=== PATIENT | male | born 1945 | race Caucasian/White ===

== ENCOUNTER 2022-04-11 08:35 | Observation (INO) ==
--- NOTE | 2022-04-06 13:03 | Anesthesiology Consultation ---
Date of Service April 06, 2022 Assessment & Plan (1) Encounter for pre-operative examination: COVID screening: Per assessment on 04/06: No known COVID-19 positive contacts or current COVID-19 related symptoms. Travel screen negative. Patient vaccinated. At surgeon discretion if preop Covid testing being done. Chart Review Chart Review: Acceptable Risk for Surgery and Patient NOT seen in Pre Admission Testing History Surgery Operation Date: 04/11/22 12:05 Proposed Procedures p TURP (Transurethral Resection of the Prostate), Possible Dilation - Frederick Thompson DO Height/Weight Height: 6 ft 2.5 in Weight: 104.326 kg Allergies Allergy/AdvReac Type Severity Reaction Status Date / Time dissolvable stitches AdvReac skin Uncoded 04/06/22 12:35 rejection Medications Home Medications Medication Instructions Recorded Confirmed Last Taken losartan 100 mg tablet (Cozaar) 100 mg PO QAM 02/09/22 04/06/22 Unknown naproxen sodium 220 mg capsule 220 mg PO BID PRN Pain 02/09/22 04/06/22 Unknown (Aleve) allopurinol 100 mg tablet 100 mg PO QAM 04/06/22 04/06/22 Unknown rqorlifh-roq-tokuv acid 300 1 tab PO QAM 04/06/22 04/06/22 Unknown mcg-lycopene 600 mcg-lutein 300 mcg tablet (Centrum Silver Men) rosuvastatin 10 mg tablet 10 mg PO HS 04/06/22 04/06/22 Unknown tamsulosin 0.4 mg capsule (Flomax) 0.4 mg PO BID 04/06/22 04/06/22 Unknown Past Medical History Medical History BPH with obstruction/lower urinary tract symptoms Hyperlipidemia Hypertension Prostate cancer Past Family History Family History Grandfather (Maternal) Colon cancer, Onset Age: 77 Mother Myocardial infarction, Onset Age: 72 Father Congestive heart failure, Onset Age: 28 Asthma Grandfather (Paternal) Stroke Past Surgical History Surgical History H/O knee surgery left knee open surgery H/O: vasectomy History of colonoscopy History of cystoscopy in office History of knee replacement left Social History Smoking Status: Former smoker tobacco type: cigarettes Do You Dip or Chew Tobacco: No Smoking End Date: 2009 Hx Alcohol Use: Yes Alcohol type: hard liquor alcohol intake frequency: a few times a week Hx Substance Use: No substance use type: does not use Testing Laboratory Results 04/01/22 WBC 5.6 H/H 15.1/44.6 PLATELETS 178 SODIUM 139 POTASSIUM 4.3 CHLORIDE 105 CO2 28 BUN 24 CREATININE 1.2 GLUCOSE 96 03/30/22 UA negative (no growth on culture) Electrocardiogram Date: 04/01/22 NSR at 60bpm. LAD. Chest X-Ray Date: 04/01/22 Minimal linear scarring at the lung bases. Mild aortic uncoiling. Moderate thoracic spine degenerative changes. No acute chest abnormality.
[~2022-04-11 08:35] MED LIST: LR 15ML/HR IV SCH; ceFAZolin 2000MG 2,000 MG/15 ML SYR IV SCH
--- NOTE | 2022-04-11 09:39 | History & Physical Bridge Note ---
Date of Service April 11, 2022 History & Physical Bridge Note I have examined the patient, reviewed the History & Physical and in the interval since the performance of the History & Physical I have noted the following changes of clinical significance: no changes noted
[2022-04-11] MEDS ORDERED: MoRPHine SULFATE 2 MG/ML CARP IV PRN (09:50)
[2022-04-11] MEDS ORDERED: PHENAZOPYRIDINE HCL 200 MG TAB PO PRN (09:50)
[2022-04-11] MEDS ORDERED: ONDANSETRON INJ 2 MG/ML 2 ML VIAL IV PRN (09:50)
[2022-04-11] MEDS ORDERED: oxyCODONE/ACETAMINOPHEN 5mg/325mg TAB PO PRN (09:50)
[2022-04-11] MEDS ORDERED: BELLADONNA/OPIUM SUPP 60 MG SUPP PR PRN (09:50)
[2022-04-11] MEDS ORDERED: KETOROLAC 30 MG/ML VIAL IV PRN (10:17)
[2022-04-11] MEDS ORDERED: ATROPINE SULFATE 0.1 MG/ML 10ML SYR IV PRN (10:17)
[2022-04-11] MEDS ORDERED: HYDROmorphone INJ 2 MG/ML SYR/VIAL IV PRN (10:17)
[2022-04-11] MEDS ORDERED: ePHEDrine sulfate 50 MG/ML AMP IV PRN (10:17)
[2022-04-11] MEDS ORDERED: PROPOFOL IV EMULSION 10 MG/ML 20 ML VIAL IV ONE (10:27)
[2022-04-11] MEDS ORDERED: DEXAMETHASONE SOD INJ 4 MG/ML VIAL ONE (10:27)
[2022-04-11] MEDS ORDERED: ONDANSETRON INJ 2 MG/ML 2 ML VIAL ONE (10:27)
[2022-04-11] MEDS ORDERED: LIDOCAINE 2% MPF LOCAL 5 ML VIAL INFIL ONE (10:27)
--- NOTE | 2022-04-11 10:56 | Operative Report ---
PG Post Operative Report Pre & Post Diagnosis BPH with obstruction, urethral stricture, and prostate cancer. Same Operation Date: 04/11/22 10:10 <No data on this case meets the specified criteria> I identified the patient and participated in the time-out.: Yes Procedure Transurethral resection of prostate with urethral dilation. Operation Date: 04/11/22 10:10 <No data on this case meets the specified criteria> Surgeon Frederick Thompson, II, DO Joiner None Estimated Blood Loss 10 Findings Consistent with Post-Op Diagnosis Large Prostate with obstruction. Large obstructing median lobe. Mid urethral stricture which was dilated. Specimens Prostate adenoma. Drains 22Fr Catheter [address] with CBI Anesthesia Type General Complications none Disposition Disposition: Recovery Room Indications Patient with obstruction due to prostate enlargement. Risks and benefits discussed at length. Description of Procedure Patient was consented and brought back to the operating room. Patient was placed under anesthesia in the supine position and moved to the dorsal lithotomy position. Patient was prepped and draped in the regular sterile fashion. A time out was completed. A 30degree Cystoscope was placed into the bladder and the entire bladder was examined. The midurethral region had a significant stricture. This area of the pendulous urethra was dilated. The scope was then able to advance. The UO's were identified as well as the bladder neck, trigone, dome, and the other important landmarks. The prostatic urethra and large lobes/adenoma was assessed and the veru and bladder neck identified and area/size was assessed. The resection scope was placed and the fine bipolar loop was selected. Starting at the 5 and 7 o'clock positions, a channel was created from bladder neck to the veru. This drastically improved the channel and allowed significant improvement. The median lobe was a majority of the obstructive issues. The Specimen was removed and sent for analysis. The resection bed and any bleeding areas were fulgurated/cauterized and the entire area inspected. All bleeding was controlled. The bladder was inspected a final time. The bladder was emptied and irrigated. All specimen and debris was removed. The scope was removed with the bladder partially full. A catheter was placed and balloon elevated. This was easily irrigated. The patient was cleaned, aroused from anesthesia, and transferred to the pacu in stable condition having tolerated the procedure well with no complications. I was present and participated in all aspects of the procedure. The patient will be monitored in the PACU until transferred. Plan to observe overnight. Will maintain catheter for approx 7 days. I attest to the content of the Intraoperative Record and any orders documented therein. Any exceptions are noted below.
[2022-04-11] MEDS: fentaNYL citrate 100 MCG/2 ML VIAL IV PRN ×2 (11:26→11:55)
--- NOTE | 2022-04-11 11:54 | Anesthesiology Progress Note ---
Date of Service April 11, 2022 Anesthesia Post Procedure Vital Signs Vital Signs: Temp Pulse Pulse Resp BP BP Pulse Ox 04/11/22 11:50 61 14 134/81 96 04/11/22 11:40 36.0 C L 61 14 137/83 97 04/11/22 11:30 62 18 138/82 97 04/11/22 11:20 72 15 141/79 H 98 04/11/22 11:10 66 16 113/70 96 04/11/22 11:02 36.0 C L 69 18 112/65 93 04/11/22 09:11 36.4 C L 57 L 18 156/90 H 98 O2 Del Method O2 Flow Rate 04/11/22 11:50 Room Air 04/11/22 11:40 Room Air 04/11/22 11:30 Room Air 04/11/22 11:20 Oxymask 5 04/11/22 11:10 Oxymask 10 04/11/22 11:02 Oxymask 10 04/11/22 09:11 Room Air Pain Intensity Penis: Pain Intensity: 4 Transfer of Care Handoff Completed per policy Notes Mental Status: alert / awake / arousable and participated in evaluation Patient Amnestic to Procedure: Yes Nausea / Vomiting: adequately controlled Pain: adequately controlled Airway Patency, RR, SpO2: stable & adequate BP & HR: stable & adequate Hydration State: stable & adequate Anesthetic Complications: no major complications apparent and Pt Satisfied with anesthetic care
[2022-04-11] MEDS ORDERED: NAPROXEN 250 MG TAB PO PRN (12:48)
[2022-04-11 13:06] LABS: Basophils # (auto) 0.04 K/uL (0-0.2); Basophils % (auto) 0.6 %; Eosinophils # (auto) 0.16 K/uL (0-0.50); Eosinophils % (auto) 2.2 %; Hematocrit (blood only) 41.5 % (40.1-51.0); Hemoglobin 14.6 g/dl (14.0-18.0); Immature Granulocytes # (auto) 0.02 K/uL (0.00-0.02); Immature Granulocytes % (auto) 0.3 %; Lymphocytes # (auto) 1.05 K/uL (1.2-3.4); Lymphocytes % (auto) 14.7 %; Mean Corpuscular Hemoglobin 33.3 pg (25.0-34.0); Mean Corpuscular Hgb Conc 35.2 g/dL (32.0-36.0); Mean Corpuscular Volume 94.7 fL (80.0-100.0); Mean Platelet Volume 8.7 fL (9.4-12.4); Monocytes # (auto) 0.31 K/uL (0.24-0.82); Monocytes % (auto) 4.3 %; Neutrophils # (auto) 5.58 K/uL (1.4-6.5); Neutrophils % (auto) 77.9 %; Platelet Count 167 K/uL (130-400); RDW Coefficient of Variation 12.1 % (11.5-14.5); RDW Standard Deviation 42.1 fL (36.4-46.3); Red Blood Count 4.38 M/uL (4.63-6.08); White Blood Count 7.16 K/ul (4.8-10.8)
[2022-04-11] MEDS: SODIUM CHLORIDE 0.9% 1000ML 1,000 ML IV SCH (13:45)
[2022-04-11 13:51] LABS: Albumin Globulin Ratio 1.6 (0.9-2); Albumin Level 3.8 gm/dl (3.4-5.0); BUN Creatinine Ratio 18.8 (10-20); Bilirubin,Total 0.6 mg/dl (0.2-1.0); Calcium 8.7 mg/dl (8.5-10.1); Creatinine Clr Calc Pharmacy 73.5 ml/min; Est GFR (African American) 73.6 ml/min; Est GFR (Non-African American) 63.5 ml/min; Globulin 2.4 gm/dl (2.5-4.0); Potassium 4.5 mmol/L (3.5-5.1); Total Protein 6.2 gm/dl (6.0-8.3)
[2022-04-11] MEDS: ceFAZolin 2000MG 2,000 MG/15 ML SYR IV SCH (18:15)
[2022-04-11] MEDS: TAMSULOSIN HCL 0.4 MG CAP PO SCH (19:41)
[2022-04-11] MEDS ORDERED: ROSUVASTATIN CALCIUM 10 MG TAB PO SCH (21:00)
[2022-04-12] MEDS: ceFAZolin 2000MG 2,000 MG/15 ML SYR IV SCH ×2 (02:20→10:29)
[2022-04-12] MEDS: SODIUM CHLORIDE 0.9% 1000ML 1,000 ML IV SCH (02:20)
[2022-04-12] MEDS ORDERED: LR 15ML/HR IV SCH (06:00)
--- NOTE | 2022-04-12 08:00 | Urology Progress Note ---
Date of Service April 12, 2022 Assessment & Plan (1) BPH with obstruction/lower urinary tract symptoms: Plan: - Pt POD#1 s/p TURP with Dr. Thompson - Doing well, progressing as expected - Tolerating PO diet - 3 way Cheng catheter intact, patent and draining clear urine with CBI on slow - CBI clamped @0715, nursing aware - will reassess later this AM - Maintain [place] catheter upon discharge, plan to remove in [address] Thompson - Anticipate home with Cheng catheter later today presuming urine appropriate and he continues to progress as expected - Rx sent for Cephalexin 500 mg BID x 7 days - Expected clinical course reviewed, all questions answered - Will arrange outpatient follow-up with our service for voiding trial Patient reassessed at 1100 - CBI was discontinued, Cheng is draining clear yellow. Patient is ready for discharge now - orders placed. Admission and Anticipated Discharge Date Admission Date: April 11, 2022 Subjective Patient seen and examined at bedside this morning. He is awake and sitting up in bed. No acute issues overnight, though notes he had poor sleep. Denies pain. Cheng intact and draining clear urine with CBI on slow. CBI clamped during my exam. No nausea or vomiting. No fever or chills. Review of Systems Constitutional: as per Subjective / HPI Gastrointestinal: as per Subjective / HPI Genitourinary: + as per Subjective / HPI Physical Exam Constitutional: well developed and well nourished; no acute distress and not ill appearing Respiratory: normal respiratory effort; no respiratory distress and no labored breathing Cardiovascular: Extremities: no pedal edema Gastrointestinal (Abdomen): Inspection/Auscultation: abdomen normal to inspection; abdomen not distended Neurologic: moves all extremities and awake Psychiatric: Orientation: alert and oriented x 3 Genitourinary: Cheng intact and draining clear urine with CBI on slow. CBI clamped during my exam. Results & Data ([facility]) Vital Signs (Past 12 Hours) Vital Signs Temp Pulse Resp BP Pulse Ox O2 Del Method 04/12/22 06:44 36.5 C 61 20 144/75 H 93 Room Air 04/12/22 03:21 36.6 C 70 18 117/64 94 Room Air 04/11/22 23:09 36.4 C L 85 14 145/84 H 94 Room Air PG Care Time/CCT Total # of Minutes Spent Total Time Spent with Patient: Total time spent is greater than 50% in coordination of care (as documented) at patient's floor/unit and/or counseling patient: Coding Level of Care Code None Diagnoses BPH with obstruction/lower urinary tract symptoms N40.1; N13.8
[2022-04-12] MEDS: TAMSULOSIN HCL 0.4 MG CAP PO SCH (08:10)
[2022-04-12] MEDS ORDERED: allopurinoL 100 MG TAB PO SCH (09:00)
[2022-04-12] MEDS ORDERED: CEROVITE ADV FORMULA TAB PO SCH (09:00)
[2022-04-12] MEDS ORDERED: LOSARTAN POTASSIUM 50 MG TAB PO SCH (09:00)
--- NOTE | 2022-04-12 11:17 | Discharge Summary ---
Date of Service April 12, 2022 Admission HPI Per Admitting Provider Patient with obstruction due to prostate enlargement here for TURP. Risks and benefits discussed at length. Admission Exam Per Admitting Provider General: Alert in no acute distress. HEENT: Normocephalic Atraumatic. Inspection normal. Psychologic: Normal affect. Respiratory: Nonlabored. Cardiovascular: No tachycardia Skin: [place] and Dry. Principal Diagnosis BPH with obstruction Discharge Exam Constitutional well developed and well nourished; no acute distress and not ill appearing Respiratory normal respiratory effort; no respiratory distress and no labored breathing Cardiovascular Extremities: no pedal edema Gastrointestinal (Abdomen) Inspection/Auscultation: abdomen normal to inspection; abdomen not distended Neurologic moves all extremities and awake Psychiatric Orientation: alert and oriented x 3 Discharge Data Allergies Allergy/AdvReac Type Severity Reaction Status Date / Time dissolvable stitches AdvReac skin Uncoded 04/06/22 12:35 rejection Procedures Performed Operation Date: 04/11/22 10:10 Actual Procedures p TURP (Transurethral Resection of the Prostate)(Not Applicable) - Frederick Thompson, DO Hospital Course (1) BPH with obstruction/lower urinary tract symptoms: - Pt POD#1 s/p TURP with Dr. Thompson - Doing well, progressing as expected - Tolerating PO diet - 3 way Cheng catheter intact, patent and draining clear urine with CBI on slow - CBI clamped @0715, nursing aware - will reassess later this AM - Maintain Cheng catheter upon discharge, plan to remove in [address] Thompson - Anticipate home with Cheng catheter later today presuming urine appropriate and he continues to progress as expected - Rx sent for Cephalexin 500 mg BID x 7 days - Expected clinical course reviewed, all questions answered - Will arrange outpatient follow-up with our service for voiding trial Patient reassessed at 1100 - CBI was discontinued, Cheng is draining clear yellow. Patient is ready for discharge now - orders placed. Total Time Total Time Spent Total Time Spent (In Minutes): 29 Discharge Plan Discharge Items Patient Disposition: Home - Self-Care Reason For Visit: Prostate Cancer Discharge Diagnosis: Prostate Cancer Activity: Per Instructions section Lifting: No more than 25 pounds Bathing Comment: Okay to shower, no tub bath or soaking. Sexual Activity: Wait until after follow-up appointment Exercise/Sports: Wait until after follow-up appointment Driving/Machine Use: No driving while taking prescription pain medication Non-emergency contact: Surgeon and Urologist Call non-emergency contact if: you have any medication questions, your pain is worsening and you have a fever Follow-up/Referrals: Frederick Thompson DO [Physician] - 04/19/22 9:00 am Alyssa Humphrey MD [Primary Care Provider] - Diet: Regular Addtl Attending Provider Instructions: Please take all medications as prescribed and keep all follow-ups as scheduled. Please call our office at [phone] with any questions, concerns or need to reschedule appointments for any reason. We are happy to assist you. Tips for your recovery at home: Dont be alarmed by brownish or reddish blood or clots in your urine. This is a result of the procedure. This may occur off and on for weeks to months after the procedure but should continue to improve. Drink plenty of fluids during the day (enough to keep your urine very light colored). This will help keep a healthy flow of urine. Do not lift >25 lbs until your followup Avoid constipation. Please use a stool softener (Colace) for the first two weeks after your procedure Be sure to finish the antibiotics as prescribed. If you go home with a catheter, please wash tubing where it enters your body twice daily with mild soap (Dove or Dial). Once your catheter is removed, expect some blood in your urine and some burning when you urinate. You should have an appointment to have this removed, if you do not please call our office to arrange. Pending Studies at Discharge: Yes Studies:: pathology Stand-Alone Forms: [facility], Smoking Cessation Medications and DC Order Prescriptions: New oxycodone-acetaminophen [Percocet] 5-325 mg tablet 1 tab PO TID PRN (Reason: pain) Qty: 5 0RF Rx Instructions: Post operative pain cephalexin 500 mg capsule 500 mg PO BID 7 Days Qty: 14 0RF docusate sodium [Colace] 100 mg capsule 100 mg PO BID Qty: 60 0RF Rx Instructions: Take twice daily for 2 weeks, then as needed for constipation. Continued losartan [Cozaar] 100 mg tablet 100 mg PO QAM naproxen sodium [Aleve] 220 mg capsule 220 mg PO BID PRN (Reason: Pain) allopurinol 100 mg Tablet 100 mg PO QAM tamsulosin [Flomax] 0.4 mg Capsule 0.4 mg PO BID rosuvastatin [Crestor] 10 mg Tablet 10 mg PO HS Centrum Silver Men 300-600-300 mcg Tablet 1 tab PO QAM Discharge Orders: Discharge Order (Routine); Ordered 04/12/22 Ordered By: Alexa Anderson Admission Data Admit Date/Time: 04/11/22 09:50 Attending Provider: Frederick Thompson Admit Provider: Frederick Thompson Primary Care Provider: Alyssa Humphrey Other Interventions: Discharge Summary Assessment (RN) Last Done: 04/12/22 11:22 Coding Level of Care Code D/C DAY MANAGEMENT <30 MINS Diagnoses BPH with obstruction/lower urinary tract symptoms N40.1; N13.8
== END 2022-04-12 13:23 | disposition home or self-care (01) ==
LOC: ASU 08:35 → 3W 08:35